=== PATIENT | female | born 1965 | race Caucasian/White ===

== ENCOUNTER 2016-05-29 14:47 | Emergency (ER) | payer MEDICAID ==
--- NOTE | 2016-05-30 10:00 | ER ---
ADMIT: 05/29/2016 RM/LOC: ER [facility] MR#: [id number] [address] [id number] ROSIE JIMÉNEZ [address] [place] [address] Emergency Room Report SEX: F AGE: 51 : 1965 DATE: 05/29/2016 HISTORY OF PRESENT ILLNESS: The patient is a 51-year-old female, who was walking today with her [id number] grandson, when she tripped and fell, tried to protect him from hitting the ground, so she put her arm under him, and at that point, she bruised her left wrist. She is able to move it without any difficulty, any problem; however, her right knee she landed on with all her strength and her weight and she is concerned about it, although she walked in the emergency room without any difficulty. PHYSICAL EXAMINATION: Upon examination, she does have extensive bruising in the right knee, also in her medial wrist there is some bruising, but she is able to move without any difficulty. Good range of motion in the wrist. The knee although is tender, she is able to extend it without any difficulty. Up on examination, the drawer sign is not present. There is mobility of the knee cap, no difficulty with range of motion, but very tender because of her weight and reported pain. IMAGING: I did an x-ray that came back negative for pathology. There is, however, some DJD. She was given instructions to follow up with primary provider. Use ice, Ultram prescription and instructions. DIAGNOSIS: Right knee contusion. KEELEY Rogers / Reynold Martin MD / spenser JOB #: [id number] CC: Reynold Martin MD, Attending Physician Augie Hutton MD, Family Physician
== END 2016-05-29 17:15 | disposition home or self-care (01) ==
LOC: ER 14:47
DX: S80.01XA Contusion of right knee, initial encounter (principal); S60.212A Contusion of left wrist, initial encounter; Z79.899 Other long term (current) drug therapy; F17.210 Nicotine dependence, cigarettes, uncomplicated; W18.09XA Striking against other object with subsequent fall, initial encounter